=== PATIENT | female | born 1975 | race Caucasian/White ===

== ENCOUNTER 2018-01-08 06:30 | Day surgery (SDC) | payer BC ==
[2018-01-08] MEDS ORDERED: Ringers Lactate 1,000 ML IV ONE (07:03)
[2018-01-08 07:38] VITALS: O2SAT 100
[2018-01-08] MEDS ORDERED: MIDAZOLAM HCL 2 MG/2 ML INJ ONE (08:12)
[2018-01-08] MEDS ORDERED: LIDOCAINE 1% MPF 5 ML VIAL ONE (08:12)
[2018-01-08] MEDS ORDERED: PROPOFOL 200 MG/20 ML VIAL IV ONE (08:12)
--- NOTE | 2018-01-08 09:02 | ENDO RPT ---
[address], [address] EGD PROCEDURE REPORT EXAM DATE: 01/08/2018 PATIENT NAME: Mesha Iraheta MR#: [id number] BIRTHDATE: 1975 ATTENDING: [address] STATUS: outpatient PALLIATIVE MEDICINE PHYSICIAN: Marine Velásquez and Ade Jerry RN INDICATIONS: The patient is a 42 yr old Female here for an EGD due to melenic bleeding PROCEDURE PERFORMED: EGD with biopsy MEDICATIONS: Per Anesthesia. TOPICAL ANESTHETIC: none CONSENT: The patient understands the risks and benefits of the procedure and understands that these risks include, but are not limited to: sedation, allergic reaction, infection, perforation and/or bleeding. Alternative means of evaluation and treatment include, among others: physical exam, x-rays, and/or surgical intervention. The patient elects to proceed with this endoscopic procedure. DESCRIPTION OF PROCEDURE: During intra-op preparation period all mechanical medical equipment was checked for proper function. Hand hygiene and appropriate measures for infection prevention was taken. Procedure, possible complications, and alternatives including but not limited to the possibility of bleeding, perforation, tear, infection, sepsis, need for surgery, need for blood transfusion, and anesthesia related complications were explained to the patient. After the risks, benefits and alternatives of the procedure were thoroughly explained, Informed consent was verified, confirmed and timeout was successfully executed by the treatment team. The patient was placed in the left lateral position. The patient was anesthetized with topical anesthesia. Through the anesthetized oropharyngeal area, the scope was passed without any difficulty. The Pentax EG-2990i ([id number]) endoscope was introduced through the mouth and advanced to the third portion of the duodenum. Retroflexed views revealed a small hiatal hernia. The gastroscope was then slowly withdrawn and removed. Irregular Z-line was found in the lower esophagus. A small hiatal hernia was found. Mild gastritis was found in the body and the antrum of the stomach. Multiple biopsies were obtained and sent to pathology. ADVERSE EVENTS: There were no complications. IMPRESSIONS: 1. Irregular Z-line at the lower esophagus 2. Small hiatal hernia 3. Mild gastritis in the body and the antrum of the stomach, s/p biopsies RECOMMENDATIONS: 1. await biopsy results 2. acid suppression therapy REPEAT EXAM: [address]t [address]into Dr eSigned: [address]t [address] Dr 01/08/2018 9:01 AM cc: Charles Christina CPT CODES: ICD9 CODES: PATIENT NAME: Mesha Iraheta MR#: [id number]
[2018-01-08 09:11] VITALS: TEMP 97.3
[2018-01-08 09:28] VITALS: BP 147/72
--- NOTE | 2018-01-08 09:36 | ENDO RPT ---
[address], [address] COLONOSCOPY PROCEDURE REPORT EXAM DATE: 01/08/2018 PATIENT NAME: Mesha Iraheta MR #: [id number] BIRTHDATE: 1975 ATTENDING: [address] STATUS: outpatient COFFEE WEIGHER: Marine Velásquez and Ade Jerry RN INDICATIONS: The patient is a 42 yr old Female here for a colonoscopy due to hematochezia, melenic bleeding, abdominal pain, family history of colon cancer, and family history of inflammatory bowel disease PROCEDURE PERFORMED: Colonoscopy with biopsy and Colonoscopy with biopsy - cold polypectomy MEDICATIONS: Per Anesthesia. ESTIMATED BLOOD LOSS: None CONSENT: The patient understands the risks and benefits of the procedure and understands that these risks include, but are not limited to: sedation, allergic reaction, infection, perforation and/or bleeding. Alternative means of evaluation and treatment include, among others: physical exam, x-rays, and/or surgical intervention. The patient elects to proceed with this endoscopic procedure. DESCRIPTION OF PROCEDURE: During intra-op preparation period all mechanical medical equipment was checked for proper function. Hand hygiene and appropriate measures for infection prevention was taken. Procedure, possible complications, alternatives including, but not limited to possibility of bleeding, perforation, tear, infection, sepsis, need for surgery, need for blood transfusion, were explained to the patient. After the risks, benefits and alternatives of the procedure were thoroughly explained, Informed consent was verified, confirmed and timeout was successfully executed by the treatment team. The patient was placed in the left lateral position. A digital rectal exam was performed and revealed no abnormalities of the rectum. After appropriate level of anesthesia, the scope was passed. The EG-2990i ([id number]) and EC-3890Li ([id number]) endoscope was introduced through the anus and advanced to the terminal ileum which was intubated for a short distance. The quality of the prep was good. The instrument was then slowly withdrawn as the colon was fully examined. Scope withdrawal time was 12 minutes. COLON FINDINGS: A sessile polyp measuring 2 mm in size was found at the ileocecal valve. A polypectomy was performed with cold forceps. Multiple polypoid shaped sessile polyps ranging between 3-7mm in size were found in the ascending colon. Multiple biopsies were performed using cold forceps. Multiple non-bleeding and irregular shaped ulcers with surrounding edema and heaped up edges were found in the ascending colon but extending to the cecum and to the proximal transverse colon in a confluent manner with two ulcers having surrounding inflammation in the descending colon. Mild diverticulosis was noted throughout the entire examined colon. Small internal hemorrhoids were found. Retroflexed views revealed small hemorrhoids. The scope was then completely withdrawn from the patient and the procedure terminated. ADVERSE EVENTS: There were no complications. IMPRESSIONS: 1. 2 mm sessile polyp at the ileocecal valve; polypectomy was performed with cold forceps 2. Multiple (30+) small 3-7 mm sessile/pedunculated polyps in the ascending colon; multiple biopsies were performed using cold forceps 3. Multiple (10+) small 2-4 mm ulcers with surrounding inflammation / loss of vascular pattern / edema / erythema / multiple inflammatory type polyps predominantly in the ascending colon but extending to the cecum and to the proximal transverse colon in a confluent manner with two ulcers having surrounding inflammation in the descending colon 4. Mild diverticulosis throughout the entire examined colon 5. Small internal hemorrhoids RECOMMENDATIONS: 1. await biopsy results 2. avoid NSAIDS 3. low residue diet 4. Small Bowel Follow Through 5. pillcam / capsule endoscopy RECALL: Return in 1 year(s) for Colonoscopy. [address] eSigned: [address]t [address] Dr 01/08/2018 9:24 AM cc: CPT CODES: ICD9 CODES: PATIENT NAME: Mesha Iraheta MR#: [id number]
--- NOTE | 2018-01-08 10:30 | ENDO RPT ---
[address], [address] COLONOSCOPY PROCEDURE REPORT EXAM DATE: 01/08/2018 PATIENT NAME: Mesha Iraheta MR #: [id number] BIRTHDATE: 1975 ATTENDING: [address] STATUS: outpatient MAIL EXAMINER: Marine Velásquez and Ade Jerry RN INDICATIONS: The patient is a 42 yr old Female here for a colonoscopy due to hematochezia, melenic bleeding, abdominal pain, personal history of Crohn's twin sister, and family history of inflammatory bowel disease (Crohn's disease) PROCEDURE PERFORMED: Colonoscopy with biopsy and Colonoscopy with biopsy - cold polypectomy MEDICATIONS: Per Anesthesia. ESTIMATED BLOOD LOSS: None CONSENT: The patient understands the risks and benefits of the procedure and understands that these risks include, but are not limited to: sedation, allergic reaction, infection, perforation and/or bleeding. Alternative means of evaluation and treatment include, among others: physical exam, x-rays, and/or surgical intervention. The patient elects to proceed with this endoscopic procedure. DESCRIPTION OF PROCEDURE: During intra-op preparation period all mechanical medical equipment was checked for proper function. Hand hygiene and appropriate measures for infection prevention was taken. Procedure, possible complications, alternatives including, but not limited to possibility of bleeding, perforation, tear, infection, sepsis, need for surgery, need for blood transfusion, were explained to the patient. After the risks, benefits and alternatives of the procedure were thoroughly explained, Informed consent was verified, confirmed and timeout was successfully executed by the treatment team. The patient was placed in the left lateral position. A digital rectal exam was performed and revealed no abnormalities of the rectum. After appropriate level of anesthesia, the scope was passed. The EG-2990i ([id number]) and EC-3890Li ([id number]) endoscope was introduced through the anus and advanced to the terminal ileum which was intubated for a short distance. The quality of the prep was good. The instrument was then slowly withdrawn as the colon was fully examined. Scope withdrawal time was 12 minutes. COLON FINDINGS: A sessile polyp measuring 2 mm in size was found at the ileocecal valve. A polypectomy was performed with cold forceps. Multiple polypoid shaped sessile polyps ranging between 3-7mm in size were found in the ascending colon. Multiple biopsies were performed using cold forceps. Multiple non-bleeding and irregular shaped ulcers with surrounding edema and heaped up edges were found in the ascending colon but extending to the cecum and to the proximal transverse colon in a confluent manner with two ulcers having surrounding inflammation in the descending colon. Mild diverticulosis was noted throughout the entire examined colon. Small internal hemorrhoids were found. Retroflexed views revealed small hemorrhoids. The scope was then completely withdrawn from the patient and the procedure terminated. ADVERSE EVENTS: There were no complications. IMPRESSIONS: 1. 2 mm sessile polyp at the ileocecal valve; polypectomy was performed with cold forceps 2. Multiple (30+) small 3-7 mm sessile/pedunculated polyps in the ascending colon; multiple biopsies were performed using cold forceps 3. Multiple (10+) small 2-4 mm ulcers with surrounding inflammation / loss of vascular pattern / edema / erythema / multiple inflammatory type polyps predominantly in the ascending colon but extending to the cecum and to the proximal transverse colon in a confluent manner with two ulcers having surrounding inflammation in the descending colon 4. Mild diverticulosis throughout the entire examined colon 5. Small internal hemorrhoids 6. Intubation to terminal ileum 7. History of Crohn's disease twin sister RECOMMENDATIONS: 1. await biopsy results 2. avoid NSAIDS 3. low residue diet 4. Small Bowel Follow Through 5. pillcam / capsule endoscopy 6. start biologic +/- immunomodulator therapy RECALL: Return in 1 year(s) for Colonoscopy. [address] eSigned: Colt Pinto Dr 01/08/2018 10:30 AM Revised: 01/08/2018 10:30 AM cc: CPT CODES: ICD9 CODES: PATIENT NAME: Mesha Iraheta MR#: [id number]
--- NOTE | 2018-01-08 10:31 | ENDO RPT ---
[address], [address] COLONOSCOPY PROCEDURE REPORT EXAM DATE: 01/08/2018 PATIENT NAME: Mesha Iraheta MR #: [id number] BIRTHDATE: 1975 ATTENDING: [address] STATUS: outpatient SPOT MACHINE OPERATOR: Marine Velásquez and Ade Jerry RN INDICATIONS: The patient is a 42 yr old Female here for a colonoscopy due to hematochezia, melenic bleeding, abdominal pain, personal history of Crohn's twin sister, and family history of inflammatory bowel disease (Crohn's disease) PROCEDURE PERFORMED: Colonoscopy with biopsy and Colonoscopy with biopsy - cold polypectomy MEDICATIONS: Per Anesthesia. ESTIMATED BLOOD LOSS: None CONSENT: The patient understands the risks and benefits of the procedure and understands that these risks include, but are not limited to: sedation, allergic reaction, infection, perforation and/or bleeding. Alternative means of evaluation and treatment include, among others: physical exam, x-rays, and/or surgical intervention. The patient elects to proceed with this endoscopic procedure. DESCRIPTION OF PROCEDURE: During intra-op preparation period all mechanical medical equipment was checked for proper function. Hand hygiene and appropriate measures for infection prevention was taken. Procedure, possible complications, alternatives including, but not limited to possibility of bleeding, perforation, tear, infection, sepsis, need for surgery, need for blood transfusion, were explained to the patient. After the risks, benefits and alternatives of the procedure were thoroughly explained, Informed consent was verified, confirmed and timeout was successfully executed by the treatment team. The patient was placed in the left lateral position. A digital rectal exam was performed and revealed no abnormalities of the rectum. After appropriate level of anesthesia, the scope was passed. The EG-2990i ([id number]) and EC-3890Li ([id number]) endoscope was introduced through the anus and advanced to the terminal ileum which was intubated for a short distance. The quality of the prep was good. The instrument was then slowly withdrawn as the colon was fully examined. Scope withdrawal time was 12 minutes. COLON FINDINGS: A sessile polyp measuring 2 mm in size was found at the ileocecal valve. A polypectomy was performed with cold forceps. Multiple polypoid shaped sessile polyps ranging between 3-7mm in size were found in the ascending colon. Multiple biopsies were performed using cold forceps. Multiple non-bleeding and irregular shaped ulcers with surrounding edema and heaped up edges were found in the ascending colon but extending to the cecum and to the proximal transverse colon in a confluent manner with two ulcers having surrounding inflammation in the descending colon. Mild diverticulosis was noted throughout the entire examined colon. Small internal hemorrhoids were found. Retroflexed views revealed small hemorrhoids. The scope was then completely withdrawn from the patient and the procedure terminated. ADVERSE EVENTS: There were no complications. IMPRESSIONS: 1. 2 mm sessile polyp at the ileocecal valve; polypectomy was performed with cold forceps 2. Multiple (30+) small 3-7 mm sessile/pedunculated polyps in the ascending colon; multiple biopsies were performed using cold forceps 3. Multiple (10+) small 2-4 mm ulcers with surrounding inflammation / loss of vascular pattern / edema / erythema / multiple inflammatory type polyps predominantly in the ascending colon but extending to the cecum and to the proximal transverse colon in a confluent manner with two ulcers having surrounding inflammation in the descending colon 4. Mild diverticulosis throughout the entire examined colon 5. Small internal hemorrhoids 6. Intubation to terminal ileum 7. History of Crohn's disease twin sister RECOMMENDATIONS: 1. await biopsy results 2. avoid NSAIDS 3. low residue diet 4. Small Bowel Follow Through 5. pillcam / capsule endoscopy 6. start biologic +/- immunomodulator therapy RECALL: Return in 1 year(s) for Colonoscopy. [address] eSigned: [address]t Pinto Dr 01/08/2018 10:30 AM Revised: 01/08/2018 10:30 AM cc: CPT CODES: ICD9 CODES: PATIENT NAME: Mesha Iraheta MR#: [id number]
--- NOTE | 2018-01-08 10:35 | ENDO RPT ---
[address], [address] EGD PROCEDURE REPORT EXAM DATE: 01/08/2018 PATIENT NAME: Mesha Iraheta MR#: [id number] BIRTHDATE: 1975 ATTENDING: [address] STATUS: outpatient PHYSICAL SECURITY SPECIALIST: Marine Velásquez and Ade Jerry RN INDICATIONS: The patient is a 42 yr old Female here for an EGD due to melenic bleeding, personal history of Crohn's disease PROCEDURE PERFORMED: EGD with biopsy MEDICATIONS: Per Anesthesia. TOPICAL ANESTHETIC: none CONSENT: The patient understands the risks and benefits of the procedure and understands that these risks include, but are not limited to: sedation, allergic reaction, infection, perforation and/or bleeding. Alternative means of evaluation and treatment include, among others: physical exam, x-rays, and/or surgical intervention. The patient elects to proceed with this endoscopic procedure. DESCRIPTION OF PROCEDURE: During intra-op preparation period all mechanical medical equipment was checked for proper function. Hand hygiene and appropriate measures for infection prevention was taken. Procedure, possible complications, and alternatives including but not limited to the possibility of bleeding, perforation, tear, infection, sepsis, need for surgery, need for blood transfusion, and anesthesia related complications were explained to the patient. After the risks, benefits and alternatives of the procedure were thoroughly explained, Informed consent was verified, confirmed and timeout was successfully executed by the treatment team. The patient was placed in the left lateral position. The patient was anesthetized with topical anesthesia. Through the anesthetized oropharyngeal area, the scope was passed without any difficulty. The Pentax EG-2990i ([id number]) endoscope was introduced through the mouth and advanced to the third portion of the duodenum. Retroflexed views revealed a small hiatal hernia. The gastroscope was then slowly withdrawn and removed. Irregular Z-line was found in the lower esophagus. A small hiatal hernia was found. Mild gastritis was found in the body and the antrum of the stomach. Multiple biopsies were obtained and sent to pathology. ADVERSE EVENTS: There were no complications. IMPRESSIONS: 1. Irregular Z-line at the lower esophagus 2. Small hiatal hernia 3. Mild gastritis in the body and the antrum of the stomach, s/p biopsies RECOMMENDATIONS: 1. await biopsy results 2. acid suppression therapy REPEAT EXAM: [address] Dr eSigned: [address]t [address] Dr 01/08/2018 10:35 AM Revised: 01/08/2018 10:35 AM cc: Charles Christina CPT CODES: ICD9 CODES: PATIENT NAME: Mesha IrahetaAmarilys MR#: [id number]
== END 2018-01-08 09:45 | disposition home or self-care (01) ==
LOC: OR 06:30
PROVIDERS: ATTEND Internal Medicine Gastroenterology
PROC: 0DB68ZX Excision of Stomach, Via Natural or Artificial Opening Endoscopic, Diagnostic (ICD-10-PCS; 2018-01-08)
PROC: 0DBK8ZX Excision of Ascending Colon, Via Natural or Artificial Opening Endoscopic, Diagnostic (ICD-10-PCS; principal; 2018-01-08 07:30)
PROC: 0DBC8ZX Excision of Ileocecal Valve, Via Natural or Artificial Opening Endoscopic, Diagnostic (ICD-10-PCS; 2018-01-08 07:30)
DX: K63.3 Ulcer of intestine (principal); K63.5 Polyp of colon; K29.50 Unspecified chronic gastritis without bleeding; B96.81 Helicobacter pylori [H. pylori] as the cause of diseases classified elsewhere; K57.90 Diverticulosis of intestine, part unspecified, without perforation or abscess without bleeding; K50.90 Crohn's disease, unspecified, without complications; K44.9 Diaphragmatic hernia without obstruction or gangrene; K64.8 Other hemorrhoids; F17.200 Nicotine dependence, unspecified, uncomplicated; Z83.79 Family history of other diseases of the digestive system; Z80.0 Family history of malignant neoplasm of digestive organs
CPT/HCPCS: 88305; 88312; J2250; J2704